=== PATIENT | female | born 1995 | race American Indian/Alaskan Native ===

== ENCOUNTER 2021-10-04 19:38 | Emergency (ER) | payer SELFPAY ==
[2021-10-04] MEDS ORDERED: SODIUM CHLORIDE 0.9% 1000 ML 1,000 ML IV ONE ×2 (20:06)
[2021-10-04] MEDS ORDERED: ONDANSETRON 4 MG/2 ML INJ IV ONE (20:06)
--- NOTE | 2021-10-04 20:17 | Emergency Department Report ---
HPI - General Chief Complaint: Medical Clearance Time Seen by Provider: 10/04/21 19:57 - HPI HPI: Room 37 The patient is a 26-year-old female present with chief complaint of THC intoxication. Patient states she took a gummy from a coworker approximate 1500 and believes it had 50 mg of THC. Patient presents stating she feels very dehydrated and just wants to go to sleep. Patient apparently had 1 episode of nausea vomiting. Patient denies having pain of any type. Patient denies any other coingestants ED Past Medical Hx - Past Medical History Previous Medical History?: No - Surgical History Past Surgical History?: No - Family History Family history: no significant - Social History Smoking Status: Never Smoker Substance Use Type: Marijuana ED Review of Systems ROS: Stated complaint: SICK DUE TO THC GUMMY Other details as noted in HPI Constitutional: no symptoms reported Eyes: denies: eye pain ENT: denies: throat pain Respiratory: no symptoms reported Cardiovascular: denies: chest pain Endocrine: no symptoms reported Gastrointestinal: nausea, vomiting Genitourinary: denies: dysuria Musculoskeletal: denies: back pain Neurological: denies: headache Physical Exam - Physical Exam Vital Signs: Vital Signs 10/04/21 19:43 Pulse Rate 124 H Respiratory 18 Rate Blood Pressure 116/90 [Left] O2 Sat by Pulse 100 Oximetry Physical Exam: GENERAL: The patient is well-developed well-nourished female lying on stretcher not appearing to be in acute distress. [] HEENT: Normocephalic. Atraumatic. Extraocular motions are intact. Patient has moist mucous membranes. NECK: Supple. Trachea midline CHEST/LUNGS: Clear to auscultation. There is no respiratory distress noted. HEART/CARDIOVASCULAR: Regular. There is tachycardia. There is no gallop rub or murmur. ABDOMEN: Abdomen is soft, nontender. Patient has normal bowel sounds. There is no abdominal distention. SKIN: There is no rash. There is no edema. There is no diaphoresis. NEURO: The patient is awake, alert, and oriented. The patient is cooperative. The patient has no focal neurologic deficits. The patient has normal speech. GCS 15 MUSCULOSKELETAL: There is no evidence of acute injury. ED Course Vital Signs 10/04/21 19:43 Pulse Rate 124 H Respiratory 18 Rate Blood Pressure 116/90 [Left] O2 Sat by Pulse 100 Oximetry ED Medical Decision Making - Lab Data Result diagrams: 10/04/21 20:30 10/04/21 20:30 - EKG Data -: EKG Interpreted by Me EKG shows normal: sinus rhythm, axis Rate: normal (63 beats per) - EKG Data When compared to previous EKG there are: previous EKG unavailable Interpretation: no acute changes (No ischemic changes seen) - Differential Diagnosis THC intoxication, Critical care attestation.: If time is entered above; I have spent that time in minutes in the direct care of this critically ill patient, excluding procedure time. ED Disposition Clinical Impression: Marijuana intoxication Disposition: 01 HOME / SELF CARE / HOMELESS Is pt being admited?: No Does the pt Need Aspirin: No Condition: Stable Instructions: What You Need to Know About Marijuana Use Additional Instructions: Return to the emergency department should you develop worsening symptoms, inability to tolerate food or liquids, high fever or any other concerns Referrals: [facility] [Provider Group] - 3-5 Days Time of Disposition: 22:30 (DC to family)
[2021-10-04 20:52] LABS: Basophils % (Auto) 0.5 % (0.0-1.8); Eosinophils # (Auto) 0.1 K/mm3 (0.0-0.4); Eosinophils % (Auto) 1.2 % (0.0-4.3); Hematocrit 43.7 % (30.3-42.9); Hemoglobin 14.4 gm/dl (10.1-14.3); Lymphocytes # (Auto) 1.2 K/mm3 (1.2-5.4); Lymphocytes % (Auto) 19.9 % (13.4-35.0); Mean Corpuscular HGB Conc 33 % (30-34); Mean Corpuscular Volume 106 fl (79-97); Monocytes # (Auto) 0.4 K/mm3 (0.0-0.8); Monocytes % (Auto) 7.4 % (0.0-7.3); Platelet Count 256 K/mm3 (140-440); Red Blood Count 4.11 M/mm3 (3.65-5.03); Red Cell Distribution Width 15.3 % (13.2-15.2)
[2021-10-04 21:08] LABS: Alanine Aminotransferase 20 units/L (7-56); Albumin 4.4 g/dL (3.9-5); BUN/Creatinine Ratio 18; Blood Urea Nitrogen 14 mg/dL (7-17); Calcium 9.3 mg/dL (8.4-10.2); Hemolysis Index 18
[2021-10-04 22:07] LABS: Color,Urine Straw (Yellow)
[2021-10-04 22:10] LABS: Bacteria,Urine 1+ /HPF (Negative)
[2021-10-04 22:17] LABS: Amphetamine Screen,Urine Negative; Benzodiazepines Screen,Urine Negative; Cocaine Screen,Urine Negative; Methadone Screen,Urine Negative; Opiate Screen,Urine Negative
[2021-10-04 22:33] LABS: Cannabinoid Screen,Urine Positive
--- NOTE | 2021-10-05 09:57 | Electrocardiograph Report ---
Test Date: 2021-10-04 Test Time: 21:17:03 Pat Name: DIDI ARNOLD Department: Room: Gender: F Mail Inserter: [id number] : 1995 Requested By: JOSE MEZA Order Number: [id number] Reading MD: Gordy Middleton Measurements Intervals [place] Rate: 63 P: 56 HI: 172 QRS: 76 QRSD: 90 T: 54 QT: 428 QTc: 440 Interpretive Statements Sinus rhythm No previous ECG available for comparison Electronically Signed On 10-05-2021 9:56:46 EDT by Gordy Middleton
[2021-10-05 10:15] VITALS: BP 117/82
== END 2021-10-05 10:15 | disposition home or self-care (01) ==
LOC: ED 19:38
DX: F12.929 Cannabis use, unspecified with intoxication, unspecified (principal); Z79.899 Other long term (current) drug therapy
CPT/HCPCS: 36415; 80053; 80307; 81001; 82550; 84703; 85025; 87086; 93005; 96361; 96374; 99284; J2405; J7030; 80320; G0480